=== PATIENT | male | born 1960 | race Caucasian/White ===

== ENCOUNTER 2025-03-02 11:53 | Emergency (ER) | payer MEDICARE, MEDICAID ==
[~2025-03-02] VITALS: Ht 170.2 cm; Wt 105.4 kg
[2025-03-02 12:00] VITALS: TEMP 98
--- NOTE | 2025-03-02 12:07 | ELECTROCARDIOGRAPH REPORT ---
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
[2025-03-02] MEDS ORDERED: TAMS-55 PO ×2 (12:34→14:47)
[2025-03-02] MEDS ORDERED: ASPI81TA52 PO (12:37)
[2025-03-02] MEDS ORDERED: SPIR25TA5 PO ×2 (12:37→14:47)
[2025-03-02] MEDS ORDERED: FURO-150 PO ×2 (12:37→14:47)
[2025-03-02 12:41] LABS: MEAN PLATELET VOLUME 7.4 FL (7.4-10.4); RED CELL DISTRIBUTION WIDTH 13.6 % (11.5-14.5)
--- NOTE | 2025-03-02 12:44 | RADIOLOGY REPORT ---
CHEST RADIOGRAPH Indication: CP Technique: Single frontal view of the chest was obtained COMPARISON: None FINDINGS: Lines and Tubes: None Lungs: Clear Pleura: No effusion. No pneumothorax. Cardiomediastinal contours: Unremarkable Bones: Unremarkable IMPRESSION: 1. No acute disease.
[2025-03-02 12:59] LABS: CREATININE 0.77 MG/DL (0.60-1.10); PRO BRAIN NATRIURETIC PEPTIDE 126 PG/ML (0-125); TOTAL CARBON DIOXIDE 21.9 MMOL/L (24-32); eCRCL 88 ML/MIN; eGFR > 90 ML/MIN
[2025-03-02] MEDS: potassium Cl 20 mEq SR tablet PO ONE (13:43)
--- NOTE | 2025-03-02 13:45 | Physician Documentation ---
History of Present Illness ~ Chief Complaint: Leg Pain Stated Complaint: LEG PAIN/SWELLING Time Seen by MD: 13:31 Source: patient Mode of Arrival: POV Exam Limitations: no limitations HPI Chief Complaint: Lower extremity swelling Caveat: None Independent Historians: None History of Present Illness: Patient is a 64-year-old man comes in complaining of lower extremity swelling that has gotten much more severe over the last week. The patient ran out of his Lasix and spironolactone and medications in October. Patient has not been able to find a primary care physician. Patient denies any chest pain. Patient denies any shortness a breath. Review of systems: All systems were reviewed and are negative except for what is indicated in the history of present illness. Past Medical History: Lower extremity edema, HTN Past Surgical History: Noncontributory Social History: No tobacco use, no alcohol use, no drug use Medications: Reviewed as documented Nursing Notes Allergies: Reviewed as documented in Nursing Notes Tetanus witin 5 years: No Medication Reconciliation Allergies: Coded Allergies: No Known Allergies (Unverified , 03/02/25) Scheduled Aspirin (Aspirin EC), 2 TAB PO BID, (Reported) Furosemide* (Lasix*), 2 TAB PO BID, (Reported) Spironolactone (Spironolactone), 25 MG PO DAILY, (Reported) Tamsulosin Hcl* (Flomax*), 2 CAP PO BID, (Reported) Review of Systems All Other Systems at this time: Reviewed and Negative ROS Patient denies any other acute symptoms other than above. All other systems are negative Physical Exam Vital Signs: RN Vital Signs have been reviewed: Yes, Temperature: 98.0, Heart Rate: 91, Respiratory Rate: 12, BP: 140/88, Pulse Oximetry: 93, Weight: 105.400 Oxygen Flow Rate: 2.0 Pulse Oximetry Reflects: adequate oxygenation Physical Exam General Appearance: Chronically ill-appearing, mild distress HEENT: Normal OP, moist oral mucosa, PERRL, EOMI Neck: supple, normal ROM, trachea midline Pulmonary: No respiratory distress, CTA, BS equal Cardiac: RRR, no murmur, rub or gallop, GI: nondistended, soft, nontender, normal bowel sounds, no guarding, no rebound Extremities: normal ROM, both lower legs are tender to palpation secondary to 2+ nonpitting edema, edema is tense Skin: intact, dry, warm, no rashes Neuro: AAOx3, speech is clear, no focal motor weakness Psych: normal affect, good eye contact, no apparent hallucination, normal speech Progress Results/Orders Results/Orders Orders - ANNE MARIE ZAMORANO MD Chest,Single View (03/02/25 12:22) Monitor (03/02/25 12:05) Saline Lock (03/02/25 12:05) Oxygen (03/02/25 12:05) Hs Troponin I W Calculations (03/02/25 15:05) Completed Orders - ANNE MARIE ZAMORANO MD Chest,Single View (03/02/25 12:22) Cbc/Diff (03/02/25 12:05) BMP (03/02/25 12:05) PBNP (03/02/25 12:05) Electrocardiogram (03/02/25 12:05) Hs Troponin I W Calculations (03/02/25 12:05) Hs Troponin I W Calculations (03/02/25 14:05) Potassium Cl Sr Tablet (K-Dur Tablet) (03/02/25 13:35) Furosemide Inj (Lasix Inj) (03/02/25 13:50) Medications Received in ER Medications (Trade) Dose Ordered Sig/Ivonne Route PRN Reason Start Time Stop Time Status Last Admin Dose Admin (K-DUR tablet) 40 meq ONCE ONCE PO 03/02/25 13:35 03/02/25 13:36 DC 03/02/25 13:43 40 MEQ (Lasix inj) 80 mg ONCE ONCE IV 03/02/25 13:50 03/02/25 13:51 DC 03/02/25 14:06 80 MG Vital Signs 03/02/25 03/02/25 03/02/25 03/02/25 12:00 12:22 12:23 12:26 Temp 98.0 Pulse 92 91 Resp 16 26 B/P (MAP) 170/83 140/88 (105) Pulse Ox 90 94 94 93 O2 Delivery Room Air* Nasal Cannula* Nasal Cannula* O2 Flow Rate 0 2 2 2.0 FiO2 N/A 28 03/02/25 12:26 Resp 12 B/P (MAP) Laboratory Tests Test 03/02/25 12:17 03/02/25 13:50 White Blood Count 7.5 Red Blood Count 5.13 Hemoglobin 16.8 Hematocrit 48.7 Mean Corpuscular Volume 94.8 Mean Corpuscular Hemoglobin 32.8 H Mean Corpuscular Hemoglobin Concent 34.6 Red Cell Distribution Width 13.6 Platelet Count 272 Mean Platelet Volume 7.4 Neutrophils (%) (Auto) 62.3 Lymphocytes (%) (Auto) 21.5 Monocytes (%) (Auto) 9.2 Eosinophils (%) (Auto) 5.9 Basophils (%) (Auto) 1.1 H Neutrophils # (Auto) 4.7 Lymphocytes # (Auto) 1.6 Monocytes # (Auto) 0.7 Eosinophils # (Auto) 0.4 Basophils # (Auto) 0.1 CBC Comment Sodium Level 141 Potassium Level 3.0 *L Chloride Level 105 Carbon Dioxide Level 21.9 L Anion Gap 14 Blood Urea Nitrogen 11 Creatinine 0.77 Estimated GFR/1.73 m2 > 90 BUN/Creatinine Ratio 14.3 Glucose Level 142 H Calcium Level 8.6 Troponin I High Sensitivity 8 8 Pro-B-Type Natriuretic Peptide 126 H Albumin 3.6 Chemistry Comments Troponin I High Sens Percent Delta 0 Troponin I Hi Sens Absolute Change 0 Medical Decision Making Findings Differential diagnosis includes but is not limited to: Venous stasis, lymphedema, lower extremity edema, CHF, acute kidney injury, lack of medications EKG independent interpretation: Performed at 12:05 p.m.. Sinus tachycardia, heart rate 102, normal axis, prolonged QT, normal ST segments Chest x-ray, single view, indication: Peripheral edema Independent interpretation: Lungs are clear, normal mediastinum, normal cardiac silhouette Laboratory data independent interpretation: CBC: Unremarkable CMP: Moderate hypokalemia with a potassium of 3 Pro BNP: 126 Troponin: Eight Emergency department course/medical decision-making: Presents with lower extremity edema. Patient has been out of his medications for months. There does not appear to be any admitting criteria. Patient did have a pulse ox of 93% when he arrived. At rest here he is Patient will be given Lasix 80 mg IV. Patient is thought to be stable for discharge. Chest x-ray is clear for congestive heart failure and pro BNP is 126. No evidence of acute coronary syndrome. Troponins are negative. PATIENT IS HEMODYNAMICALLY STABLE. PATIENT ISN'T REQUIRING OXYGEN. PATIENT IS 95% ON ROOM AIR. PATIENT DOES NOT WISH TO BE ADMITTED UNLESS ABSOLUTELY NECESSARY. DESPITE THAT THERE WAS NO EVIDENCE OF ANY ADMISSION CRITERIA. THERE WAS NO EVIDENCE OF A MEDICAL OR SURGICAL EMERGENCY. Departure Time of Disposition: 14:43 Disposition: 01 HOME / SELF CARE / HOMELESS Impression: Primary Impression: Peripheral edema Condition: Stable Discharge Instructions: Peripheral Edema Additional Instructions: IF YOU ARE UNABLE TO FOLLOW UP WITH THE PRIMARY CARE DOCTOR WITHIN A MONTH I WOULD RECOMMEND FOLLOWING UP AT THE [facility] TO GET REFILLS OF YOUR MEDICATIONS. Prescriptions Aspirin (Baby Aspirin) 81 Mg Tab.chew 2 TAB.CHEW PO DAILY, #60 TAB.CHEW Prov: ANNE MARIE ZAMORANO MD 03/02/25 Tamsulosin Hcl* (Flomax*) 0.4 Mg Cap.sr.24h 1 CAP PO DAILY for 30 Days, #30 CAP Prov: ANNE MARIE ZAMORANO MD 03/02/25 Spironolactone (Spironolactone) 25 Mg Tablet 1 TAB PO DAILY for 30 Days, #30 TAB 0 Refills Prov: ANNE MARIE ZAMORANO MD 03/02/25 Furosemide* (Lasix*) 20 Mg Tablet 2 TAB PO BID, #120 TAB Prov: ANNE MARIE ZAMORANO MD 03/02/25 Education Educated: Patient Educated regarding: diagnosis, treatment Signature Scribe Signature: No scribe Attestation: No scribe ANNE MARIE ZAMORANO MD Mar 02, 2025 13:45
[2025-03-02] MEDS: furosemide 10 MG/1 ML 10ml inj IV ONE (14:06)
[2025-03-02] MEDS ORDERED: ASPI-529 PO (14:47)
[2025-03-02 15:07] VITALS: BP 140/88; PULSE 93; RESP 20; O2SAT 95
== END 2025-03-02 15:08 | disposition home or self-care (01) ==
LOC: ER 11:55
DX: R60.0 Localized edema (principal); I10 Essential (primary) hypertension; R06.02 Shortness of breath
CPT/HCPCS: 36415; 71045; 80048; 83880; 84484; 85025; 93005; 96374; 99285; J1938; J7030

== ENCOUNTER 2025-03-04 00:04 | Inpatient (IN) | payer MEDICARE, MEDICAID ==
[2025-03-04] VITALS (10 sets, daily range): BP systolic 130–156; BP diastolic 73–92; PULSE 74–85; RESP 17–20; TEMP 96.7–98.6; O2SAT 93–96
[~2025-03-04] VITALS: Ht 175.3 cm; Wt 100.0 kg
[~2025-03-04 00:04] MED LIST: ASPI-529 PO; ASPI81TA52 PO; FURO-150 PO; SPIR25TA5 PO; TAMS-55 PO
--- NOTE | 2025-03-04 00:47 | RADIOLOGY REPORT ---
CHEST RADIOGRAPH Indication: CP Technique: 1 view Comparison: DI CHEST,SINGLE VIEW on DOS: 03/02/25 FINDINGS: Lines and Tubes: None Lungs/Pleura: No focal consolidation, pleural effusion or pneumothorax. Mild scarring/atelectasis in the lung bases Cardiomediastinum: Heart size within normal limits. Other: No acute osseous abnormality. IMPRESSION: 1. No acute cardiopulmonary abnormality or significant change from prior exam.
[2025-03-04 00:57] LABS: MEAN PLATELET VOLUME 7.3 FL (7.4-10.4); RED CELL DISTRIBUTION WIDTH 13.7 % (11.5-14.5)
[2025-03-04 01:21] LABS: CREATININE 0.89 MG/DL (0.60-1.10); PRO BRAIN NATRIURETIC PEPTIDE 34 PG/ML (0-125); TOTAL CARBON DIOXIDE 27.7 MMOL/L (24-32); eCRCL 82 ML/MIN; eGFR 86 ML/MIN
--- NOTE | 2025-03-04 01:22 | Physician Documentation ---
History of Present Illness ~ Chief Complaint: Chest Pain Stated Complaint: CHEST PAINS M ALS Time Seen by MD: 01:10 Primary Medical Doctor: none Mode of Arrival: EMS HPI Patient presents to the emergency room for evaluation of chest pain that occurred while he was watching TV. No prior instances. Pain described as severe with no exacerbating or relieving factors. Patient does not have a primary care but does endorse history of hyperlipidemia and hypertension. Medication Reconciliation Allergies: Coded Allergies: No Known Allergies (Unverified , 03/02/25) Scheduled Aspirin (Aspirin EC), 2 TAB PO BID, (Reported) Aspirin (Baby Aspirin), 2 TAB.CHEW PO DAILY Furosemide* (Lasix*), 2 TAB PO BID, (Reported) Furosemide* (Lasix*), 2 TAB PO BID Spironolactone (Spironolactone), 25 MG PO DAILY, (Reported) Spironolactone (Spironolactone), 1 TAB PO DAILY Tamsulosin Hcl* (Flomax*), 2 CAP PO BID, (Reported) Tamsulosin Hcl* (Flomax*), 1 CAP PO DAILY Review of Systems ROS All review of systems negative except as per HPI Physical Exam Vital Signs: Temperature: 98.1, Source: Oral, Heart Rate: 103, Respiratory Rate: 25, BP: 116/76, Pulse Oximetry: 93, Weight: 100.000 Oxygen Flow Rate: 4.0 Physical Exam General: Patient is awake, alert, oriented x4 in no acute distress and well appearing.~ Head: Normocephalic and atraumatic. Eyes: Conjunctival normal. EOMI. PERRL. ENT: Mucous membranes moist. Neck: Supple, trachea is midline. Chest: Clear to auscultation bilaterally without rales, rhonchi, or wheezes. The re is no accessory muscle use or retractions. Cardiac: RRR without murmurs, gallops, or rubs. Abd: Soft, nondistended, nontender, with normoactive bowel sounds. No guarding, rebound, or rigidity. Progress Results/Orders Results/Orders Orders - PEPE MOE MD Chest,Single View (03/04/25 00:30) Monitor (03/04/25 00:16) Saline Lock (03/04/25 00:16) Oxygen (03/04/25 00:16) Electrocardiogram (03/04/25 00:16) Hs Troponin I W Calculations (03/04/25 02:16) Hs Troponin I W Calculations (03/04/25 03:16) Page Hospitalist (03/04/25 02:15) Fill Out Med Reconciliation (03/04/25 02:15) Completed Orders - PEPE MOE MD Chest,Single View (03/04/25 00:30) Cbc/Diff (03/04/25 00:16) BMP (03/04/25 00:16) PBNP (03/04/25 00:16) Hs Troponin I W Calculations (03/04/25 00:16) Vital Signs 03/04/25 03/04/25 03/04/25 00:14 00:50 00:55 Temp 98.1 98.1 Pulse 106 103 Resp 21 25 B/P (MAP) 132/79 116/76 (89) Pulse Ox 90 93 O2 Flow Rate 4.0 4.0 Laboratory Tests Test 03/04/25 00:42 03/04/25 02:13 White Blood Count 11.1 H Red Blood Count 4.79 Hemoglobin 15.6 Hematocrit 45.2 Mean Corpuscular Volume 94.3 Mean Corpuscular Hemoglobin 32.5 H Mean Corpuscular Hemoglobin Concent 34.4 Red Cell Distribution Width 13.7 Platelet Count 255 Mean Platelet Volume 7.3 L Neutrophils (%) (Auto) 73.9 Lymphocytes (%) (Auto) 14.7 L Monocytes (%) (Auto) 9.9 Eosinophils (%) (Auto) 0.7 Basophils (%) (Auto) 0.8 Neutrophils # (Auto) 8.2 H Lymphocytes # (Auto) 1.6 Monocytes # (Auto) 1.1 H Eosinophils # (Auto) 0.1 Basophils # (Auto) 0.1 CBC Comment Sodium Level 137 Potassium Level 3.7 Chloride Level 99 Carbon Dioxide Level 27.7 Anion Gap 10 Blood Urea Nitrogen 21 H Creatinine 0.89 Estimated GFR/1.73 m2 86 BUN/Creatinine Ratio 23.6 H Glucose Level 141 H Calcium Level 9.4 Troponin I High Sensitivity 10 Troponin I High Sens Percent Delta 25 Troponin I Hi Sens Absolute Change 2 Pro-B-Type Natriuretic Peptide 34 Albumin 3.4 Chemistry Comments EKG/XRAY/CT/US/VASC/MRI EKG : Additional Comment EKG interpreted by myself shows time of 0 0 15, rate 106, sinus tachycardia, normal axis, noted PVC, no ST changes Chest X-Ray : Additional Comments Exam: CHEST,SINGLE VIEW CHEST RADIOGRAPH Indication: CP Technique: 1 view Comparison: DI CHEST,SINGLE VIEW on DOS: 03/02/25 FINDINGS: Lines and Tubes: None Lungs/Pleura: No focal consolidation, pleural effusion or pneumothorax. Mild scarring/atelectasis in the lung bases Cardiomediastinum: Heart size within normal limits. Other: No acute osseous abnormality. IMPRESSION: 1. No acute cardiopulmonary abnormality or significant change from prior exam. Medical Decision Making Findings Patient presents to the emergency room for evaluation of chest pain as per HPI. Differentials include but are not limited to ACS, pulmonary embolism, aortic pathology, musculoskeletal pain therefore emergent labs and imaging indicated. Patient has not elevated heart score of four and we will admit for further investigation. No current symptoms and he had not feel he requires investigation into aortic pathology or pulmonary embolism. Departure Admitted to Inpatient Unit: yes, to hospitalist Impression: Primary Impression: Chest pain Condition: Guarded Referrals: NO PRIMARY CARE PROVIDER (PCP) Signature Scribe Signature: No scribe Attestation: The note accurately reflects work and decisions made by me.Pepe Moe MD 03/04/25 01:22 PEPE MOE MD Mar 04, 2025 01:22
[2025-03-04] MEDS ORDERED: magnesium sulf-water 4G/100mL 100 ML IV PRN (02:35)
[2025-03-04] MEDS ORDERED: magnesium Cl slow-release 64mg tablet PO PRN (02:35)
[2025-03-04] MEDS ORDERED: HYDROmorphone inj. 0.5 MG/0.5 ML DISP.SYRIN IV PRN (02:35)
[2025-03-04] MEDS ORDERED: magnesium hydroxide 30ml (MOM) UD suspension PO PRN (02:35)
[2025-03-04] MEDS ORDERED: potassium Cl 40MEQ/1/2NS 520ml 520 ML IV PRN (02:35)
[2025-03-04] MEDS ORDERED: magnesium sulf-water 2g/50mL 50 ML IV PRN (02:35)
[2025-03-04] MEDS ORDERED: HYDROmorphone/PF 0.2 MG/ML SYRINGE IV PRN (02:35)
[2025-03-04] MEDS ORDERED: potassium Cl 20 mEq SR tablet PO PRN ×2 (02:35)
[2025-03-04] MEDS ORDERED: ondansetron/PF 4mg/2ml inj IV PRN (02:35)
[2025-03-04] MEDS ORDERED: metoprolol tartrate 1mg/ml inj IV PRN (04:25)
[2025-03-04] MEDS ORDERED: regadenoson 0.4mg/5ml syringe IV PRN (04:25)
[2025-03-04] MEDS ORDERED: aminophylline 250mg/10ml inj. IV PRN (04:25)
--- NOTE | 2025-03-04 05:32 | ELECTROCARDIOGRAPH REPORT ---
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
--- NOTE | 2025-03-04 05:40 | HISTORY AND PHYSICAL-Residence ---
History & Physical Providers to CC Resident Creating Document: PANFILO ROMERO, RES ~ History of Present Illness Primary Medical Doctor: none Reason for Admit\Complaint: Chest pain History of Present Illness 64 years old with a history of hyperlipidemia and hypertension comes to ED with complains of chest pain which occurs at rest when he was watching TV which is not subsiding even after taking 3 Nitroglycerins, It is right sided crushing chest pain which is 7/10 in intensity which is radiating to back which is associated with sweating no nausea , vomiting. He is currently on 4l Oxygen on Nasal canula .patient is in acute distress during examination Allergies: Coded Allergies: No Known Allergies (Unverified , 03/02/25) Home Medications Home Medications Active Reported Aspirin EC (Aspirin) 81 Mg Tablet.dr 2 Tab PO BID 30 Days Spironolactone 25 Mg Tablet 25 Mg PO DAILY Lasix* (Furosemide) 20 Mg Tablet 2 Tab PO BID 30 Days Flomax* (Tamsulosin HCl) 0.4 Mg Cap.sr.24h 2 Cap PO BID 30 Days Past Medical History Past Medical History hyperlipidemia hypertension. 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 Past Social History Smoking: Quit less than 1 year (used to smoke about a pack of cigarettes daily for 40 years but 4 months ago he stopped ) Alcohol Use: Occasionally Drug Use: None Lives with: Alone Lives In: Home ROS Constitutional: Reports: no symptoms reported Eyes: Reports: no symptoms reported ENT: Reports: no symptoms reported Respiratory: Reports: no symptoms reported Cardiovascular: Reports: chest pain Gastrointestinal: Reports: no symptoms reported Genitourinary: Reports: no symptoms reported Male Genitalia: Reports: no symptoms reported Neurological: Reports: no symptoms reported Musculoskeletal: Reports: no symptoms reported Integumentary: Reports: no symptoms reported Hematologic/Lymphatic: Reports: no symptoms reported Endocrine: Reports: no symptoms reported Exam Vitals: Vital Signs Date Time Temp Pulse Resp B/P (MAP) Pulse Ox O2 Delivery O2 Flow Rate FiO2 03/04/25 04:53 74 03/04/25 04:30 18 Nasal Cannula 4.0 03/04/25 04:15 96.7 155/88 (110) 95 General: General: Oriented, awake,in acute distress. HEENT: Conjunctiva pink, Sclera clear, Mucus Membranes moist. Neck: Supple without masses and tenderness. Resp: Lungs clear to auscultation bilaterally, no abnormal breath sound heard Heart: tachycardic, normal S1 and S2 without murmur, rub or gallop. Abdomen: distended with no organomegaly Extremities: peripheral pitting edema.No cyanosis,clubbing Skin: Warm and Dry. Diagnostic Data Last Recorded Lab Results: 03/04/25 0042 03/04/25 0300 Diagnostic Data: Laboratory Tests Test 03/04/25 00:43 D-Dimer 2.33 MG/L FEU (0-0.50) H D-Dimer Comment Advance Care Planning Advanced Care plannin - 30 Minutes Additional Plan Chest pain likely due to PE vs UA RADHA score 4 / HEART SCORE : 5 Bp:155/88, HR:85 EKG: Sinus tachy, Troponins negative D-Dimers: 2.33 No acute cardiopulmonary abnormality P: continue Nitroglycerin PRN started Atrovostatin 40mg PO daily Metaprolol 25 mg PO BID pending Echo pending CTA Chest if negative consider thanh scan continue heparin drip pharmacy to dose Hypertension: Started home med Tamusulosin 2 cap PO BID Sprionolactone 25mg PO daily Furosemide 20mg Tab Hyperlipidemia : started atorvastatin Disposition: patient will be monitored in ortho panfilo romero [id number] Fusaro addendum #1 Neuro: - Monitor for delirium #2 CV: The pt has a history of HTN, hyperlipidemia, chest pain, and possible acute coronary syndrome - Continue aspirin, statin, metoprolol, and nitroglycerin for ACS management - Administer heparin as per ACS protocol - If hemodynamically stable, continue home BP meds - Monitor vitals closely, especially heart rate and blood pressure - Monitor for alleviation of chest pain #3 Pulm: - Promote IS use - Keep O2 saturation >92% #4 GI: - Advance diet when ok with primary #5 Renal: bph, confrim dose of tamsulosin with pharmacy as it seems atypical - Monitor for JOAQUINA - Replete electrolytes as needed - Continue lasix and spironolactone as indicated for fluid management #6 ID: - Monitor for infection #7 Endo: The pt has a history of dyslipidemia. - Maintain FS 150-180 - Continue statin and other lipid-lowering agents #8 Heme/Onc: - Monitor for bleeding and blood clots due to heparin - Keep Hgb >7 and plt >10 #9 PPx: - Chemical DVT PPx as per protocol I saw this patient and completed a full visual exam via audio-visual HIPAA compliant technology. Date of Service: Mar 04, 2025 Billing Provider: NICOLAS BARTH MD, SATISH, RES Mar 04, 2025 05:40 JUSTO SHAY, RES Mar 04, 2025 06:59 NICOLAS BARTH MD Mar 04, 2025 09:47
[2025-03-04 07:05] LABS: CREATININE 1.05 MG/DL (0.60-1.10); eCRCL 69 ML/MIN; eGFR 71 ML/MIN
[2025-03-04] MEDS ORDERED: HEPARIN DRIP DVT/PE -**PHARMACIST TO DOSE IV SCH (07:10)
[2025-03-04] MEDS ORDERED: heparin 10,000 units/1 ML INJ IV PRN ×2 (07:30→07:45)
[2025-03-04] MEDS ORDERED: heparin 25,000 UNIT/250ml bag 250 ML IV PRN ×2 (07:30→07:45)
[2025-03-04] MEDS ORDERED: heparin 10,000 units/1 ML INJ IV ONE (07:30)
[2025-03-04] MEDS: heparin 10,000 units/1 ML INJ IV ONE (07:45)
[2025-03-04] MEDS: MESSAGE TO NURSING IV ONE (07:55)
[2025-03-04] MEDS: K and/or MAG REPLACEMENT MC SCH (08:00)
--- NOTE | 2025-03-04 08:14 | RADIOLOGY REPORT ---
CTA Chest with intravenous contrast INDICATION: sob COMPARISON: Chest radiograph performed on 03/04/2025. TECHNIQUE: Multidetector spiral CTA of the chest was performed of the chest with 100 cc of omnipaque 350 intravenous contrast. PULMONARY ANGIOGRAPHY PROTOCOL was utilized using a bolus-tracking techniqu e centered on the main pulmonary artery. Coronal and sagittal multiplanar and MIP reformats were perf ormed. Radiation Dose : 1. Chest: CTDI volume is 23.6 mGy. Dose-length product is 918.2 mGy*cm The dose indicators for CT are the volume Computed Tomography (CT) Dose Index (CTDIvol) and the Dose Length Product (DLP), and are measured in units of mGy and mGy-cm, respectively. These indicators are not patient dose, but values generated from the CT scanner acquisition factors. The report includes radiation exposure data for exposures received during this examination. FINDINGS: Pulmonary artery: No central, lobar or proximal segmental pulmonary embolus. Lower neck: Unremarkable thyroid. Lungs: There is paraseptal emphysema in the lung apices. No suspicious pulmonary nodule. Mild left up per lobe atelectasis. Central airways: Patent. Pleura: No pneumothorax. No pleural effusions. Heart/Vascular Structures: The heart is normal in size. No pericardial effusion. Thoracic aorta is no rmal in caliber. No aneurysm or dissection. Lymph Nodes: No mediastinal or hilar lymphadenopathy. Esophagus:Grossly unremarkable. Musculoskeletal: Old left clavicular fracture. No acute osseous abnormality. Body wall: Unremarkable. Upper abdomen: Hepatic steatosis. IMPRESSION: 1. No evidence of pulmonary embolism. 2. Paraseptal emphysema. No evidence of pneumonia. 3. Hepatic steatosis.
[2025-03-04] MEDS ORDERED: heparin, porcine 5000 units/ml vial SQ SCH (08:30)
[2025-03-04] MEDS: docusate sod 100mg capsule PO SCH (09:07)
--- NOTE | 2025-03-04 15:10 | PROGRESS NOTE- Residence ---
Progress Note - Resident Providers to CC Resident Creating Document: JOSÉ HUTCHINSON RES ~ Antibiotic Timeout Antibiotic Ordered?: No Subjective Patient was seen and examined bedside. He appears to be in mild distress. He is on 4 L oxygen and feels short of breath on exertion. He states that his chest pain has shifted to the right side, 7/10 in intensity and he reports that he has been having few muscle spasms over his chest and abdomen. Objective Vital Signs Date Time Temp Pulse Resp B/P (MAP) Pulse Ox O2 Delivery O2 Flow Rate FiO2 03/04/25 10:08 18 03/04/25 10:00 98.3 75 143/92 (109) 96 Nasal Cannula 3.0 Result Diagram: 03/04/25 0042 03/04/25 0300 General: Oriented, awake,in mild distress. HEENT: Conjunctiva pink, Sclera clear, Mucus Membranes moist. Neck: Supple without masses and tenderness. Resp: chest tenderness present, Lungs clear to auscultation bilaterally, no abnormal breath sound heard Heart: Sinus rhythm, normal S1 and S2 without murmur, rub or gallop. Abdomen: distended with no organomegaly Extremities: peripheral pitting edema.No cyanosis,clubbing Skin: Warm and Dry. Coagulation Studies Laboratory Tests Test 03/04/25 00:43 03/04/25 08:15 D-Dimer 2.33 MG/L FEU (0-0.50) H D-Dimer Comment APTT (Heparin Protocol) 25 SECONDS (45-60) L Coagulation Comments Assessment Assessment Plan Plan Chest pain Possibly secondary to CHF exacerbation vs musculoskeletal Differential diagnosis includes: Unstable/stable angina- however less likely as pain is produced on deep palpation and chest tenderness present Ischemic etiology, pulmonary embolism - ruled out Patient complains of chest pain being shifted to the right side and reports of muscle spasms, there is chest tenderness so the pain is most likely musculoskeletal Plan: Troponin-not elevated EKG shows no ST elevation CTA- 1. No evidence of pulmonary embolism. 2. Paraseptal emphysema. No evidence of pneumonia. 3. Hepatic steatosis. Continue pain medication Start patient on IV Lasix 40 mg b.i.d. Monitor urine inputs and outputs Echo report -pending Hypertension: Started on IV Lasix 40 mg bid On tamsulosin 0.8 mg PO BID Sprionolactone 25 mg PO daily Metoprolol 25 mg p.o. b.i.d. Hyperlipidemia: Lipid panel ordered on atorvastatin 40 mg p.o. Disposition: Continue pain medication Started on IV Lasix 40 mg b.i.d. Strictly monitor inputs and outputs We will await echo report José Hutchinson, Internal Medicine Resident, PGY-1 Date of Service: Mar 04, 2025 Billing Provider: JAYDA SEGURA MD,JOSÉ, RES Mar 04, 2025 15:10
[2025-03-04] MEDS: PERFLUTREN PROTEIN-A MICROSPHR (Optison) 0.22 MG/ML 3ML VIAL IV ONE (18:26)
--- NOTE | 2025-03-04 18:36 | CARDIOLOGY REPORT ---
APPROVED REPORT EXAM: Comprehensive 2D, Doppler, and color-flow Echocardiogram. Patient Location: 40[address] Blood Pressure: 143/92 mmHg Heart Rate: 71 bpm Rhythm: SINUS Indications CHEST PAIN HYPERLIPIDEMIA HYPERTENSION CHEST PAIN Kaitara Taraka: none Previous echo: none 2D Dimensions RVDd 4.1 cm LA Diam4.6 cm LVOT Diameter 2.29 (1.8-2.4cm) Ao Asc Diam.3.11 cm IVC 16.41 mmCO 3.6 L/min M-Mode Dimensions Left Atrium(MM) 3.42 (2.5-4.0cm) IVSd 1.21 (0.7-1.1cm) LVDd 4.43 (4.0-5.6cm) Aortic Root 3.15 (2.2-3.7cm) PWd 1.21 (0.7-1.1cm) Aortic Cusp Exc 2.10 (1.5-2.0cm) IVSs 1.44 cm MV EPSS 0.9 (<0.5cm) LVDs 3.11 (2.0-3.8cm) FS (%) 30 % PWs 1.98 cm ESV(Teich) 38.3 ml LVEF(%) 57 (>50%) Biplane 2D LA Volumes LA ESV Index 13.46 mL/m2 Aortic Valve AoV Peak Pancho. 124.6 cm/s AoV VTI 23.9 cm AO Peak GR. 6.2 mmHg AO Mean GR. 4 mmHg LVOT VTI 15.79 cm LVOT Peak Pancho. 87.6 cm/s PAM(VTI)/BSA 2.72 cm2/m2 PAM (VTI) 2.72 cm2 Mitral Valve MV E Velocity 79.9 cm/s MV Peak Gr. 3 mmHg MV DECEL TIME 244 ms MV A Velocity 97.7 cm/s MV PHT 60 ms E/A Ratio 0.8 MVA (PHT) 3.67 cm2 MV VMax90.2 cm/s TDI Medial E' P. V 10.13 cm/s E/Medial E' 7.9 Pulmonary Vein S1 Velocity 41.9 cm/s D2 Velocity 53.0 cm/s PVa Jydfmqfb55.5 cm/s PVa Jxoewsam52 msec LEFT VENTRICLE Normal LV size and function. Mild concentric hypertrophy. LVEF is 55-60%. RIGHT VENTRICLE RV is moderately dilated in size with normal function. ATRIA LA size is normal. AORTIC VALVE Trileaflet AV appears mildly sclerotic without stenosis or insufficiency. MITRAL VALVE Mild MV annular calcification without stenosis. Trace regurgitation. TRICUSPID VALVE TV appears structurally normal with trace regurgitation. PULMONIC VALVE Normal PV without stenosis, physiologic insufficiency. GREAT VESSELS Aortic root is normal in size. Ascending aorta is normal in size. The IVC is normal in size and colla pses greater than 50% with inspiration. PERICARDIUM Normal pericardium. No effusion. Other Information Study Quality: Adequate Conclusion Normal LV size and function. Mild concentric hypertrophy. LVEF is 55-60%. RV is moderately dilated in size with normal function. LA size is normal. Trileaflet AV appears mildly sclerotic without stenosis or insufficiency. Mild MV annular calcification without stenosis. Trace regurgitation. TV appears structurally normal with trace regurgitation. Normal pericardium. No effusion.
[2025-03-04 19:45] LABS: CHOL/HDL RATIO 4.6 (0.00-4.99); LDL CHOLESTEROL 187 MG/DL (50-100)
--- NOTE | 2025-03-04 22:59 | ELECTROCARDIOGRAPH REPORT ---
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 ADAM Rizo Measurements Intervals [place] Rate: 71 P: 70 NV: 160 QRS: 38 QRSD: 100 T: 37 QT: 460 QTc: 500 Interpretive Statements Sinus rhythm Ventricular premature complex Borderline prolonged QT interval Baseline wander in lead(s) III Electronically Signed On 03-05-2025 19:17:[address] ADAM Rizo Please click the below link to view image of tracing.
[2025-03-04] MEDS ORDERED: mag hydrox/Alum hydrox/simeth 30ml oral suspension PO PRN (23:15)
[2025-03-05] VITALS (9 sets, daily range): BP systolic 90–127; BP diastolic 45–72; PULSE 71–81; RESP 16–19; TEMP 97.7–97.9; O2SAT 90–97
[2025-03-05] MEDS: mag hydrox/Alum hydrox/simeth 30ml oral suspension PO PRN (05:48)
[2025-03-05 07:00] LABS: CREATININE 0.88 MG/DL (0.60-1.10); TOTAL CARBON DIOXIDE 29.4 MMOL/L (24-32); eCRCL 83 ML/MIN; eGFR 87 ML/MIN
[2025-03-05 07:06] LABS: MEAN PLATELET VOLUME 8.0 FL (7.4-10.4); RED CELL DISTRIBUTION WIDTH 13.6 % (11.5-14.5)
[2025-03-05] MEDS: pantoprazole 40mg Tablet.DR PO SCH (09:06)
[2025-03-05] MEDS ORDERED: aminophylline 250mg/10ml inj. IV PRN (09:55)
[2025-03-05] MEDS ORDERED: metoprolol tartrate 1mg/ml inj IV PRN (09:55)
[2025-03-05] MEDS: regadenoson 0.4mg/5ml syringe IV PRN (13:15)
--- NOTE | 2025-03-05 14:35 | RADIOLOGY REPORT ---
EXAM: NM NM RIDGE SCAN History: chest pain r/o ACS Comparison Study: None TECHNIQUE: Resting myocardial perfusion imaging was performed approximately 30 minutes following the injection of 8.35 mCi of Tc-99m sestamibi. Peak pharmacologic stress, the patient was injected with 3 2.04 mCi of Tc-99m sestamibi. Gated post stress images were acquired in the supine and prone position s approximately 30 minutes after stress and left ventricular ejection fraction (LVEF) was calculated. Findings: The overall quality of the study is adequate. The left ventricular cavity is noted to be normal. There is no evidence of abnormal lung activity. Additionally, the right ventricle appears normal. Myocardial perfusion images demonstrate homogeneous tracer distribution throughout the myocardium wit h no scintigraphic evidence of myocardial ischemia or necrosis/scar. Gated imaging reveals normal thickening and wall motion with a calculated LVEF of 51 % with end-diast olic volume of 70 mL at stress. Impression: 1. No evidence of ischemia or scar. 2. Overall gated left ventricular systolic function was normal with calculated LVEF of 51 % at stress . 3. No left ventricular dilatation.
[2025-03-05] MEDS ORDERED: ACET-1008 PO ×2 (16:15→16:16)
[2025-03-05] MEDS ORDERED: ATOR20TA66 PO (16:19)
[2025-03-05] MEDS ORDERED: IBUP600T52 PO (16:19)
[2025-03-05] MEDS ORDERED: PANT40TA54 PO (16:19)
[2025-03-05] MEDS ORDERED: THIA100T70 PO (16:33)
[2025-03-05] MEDS ORDERED: FOLI0.4T6 PO (16:33)
--- NOTE | 2025-03-05 19:31 | DISCHARGE SUMMARY-Residence ---
Discharge Summary Providers to CC Resident Creating Document: JOSÉ HUTCHINSON, RES ~ Discharge Summary Admission Diagnosis: Chest pain Hospital Course DATE OF ADMISSION: 03/04/25 DATE OF DISCHARGE: 03/05/25 Discharge Diagnosis\Comment: Chest pain -noncardiac Possible costochondritis Acute on chronic heart failure with preserved ejection fraction- diastolic Hypertension Hyperlipidemia Operations\Procedures: None Consultants: None Complications: None Condition on DC: Stable New Medications: Folic Acid* (Folic Acid*) 0.4 Mg Tablet 1 TAB PO DAILY for 30 Days, #30 TAB Thiamine Mononitrate (Vitamin B-1) 100 Mg Tablet 100 MG PO DAILY for 30 Days, #30 TAB Atorvastatin Calcium (Atorvastatin Calcium) 20 Mg Tablet 40 MG PO DAILY for 30 Days, #60 TAB Pantoprazole Sodium (Pantoprazole Sodium) 40 Mg Tablet.dr 40 MG PO BKF for 30 Days, #30 TAB.SR Changed Medications: Acetaminophen (Tylenol) 325 Mg Tablet 650 MG PO Q8H for pain for 7 Days, #20 TAB (Changed from: Q8H PRN TEMPERATURE; 90; 15) Continued Medications: Aspirin (Aspirin EC) 81 Mg Tablet.dr 2 TAB PO BID for 30 Days, #30 TAB Furosemide* (Lasix*) 20 Mg Tablet 2 TAB PO BID for 30 Days, #30 TAB Spironolactone (Spironolactone) 25 Mg Tablet 25 MG PO DAILY, #30 TAB Tamsulosin Hcl* (Flomax*) 0.4 Mg Cap.sr.24h 2 CAP PO BID for 30 Days, #30 CAP Discharge Summary: HPI as per admitting physician: 64 years old with a history of hyperlipidemia and hypertension comes to ED with complains of chest pain which occurs at rest when he was watching TV which is not subsiding even after taking 3 Nitroglycerins, It is right sided crushing chest pain which is 7/10 in intensity which is radiating to back which is associated with sweating no nausea , vomiting. He is currently on 4l Oxygen on Nasal canula .patient is in acute distress during examination. Hospital course: Patient presented with chest pain and shortness of breath. His chest pain was noncardiac most likely costochondritis as he had chest tenderness on deep palpation. Pain was managed by morphine 2 mg/4 mg q.4h p.r.n. for moderate and severe pain respectively. He also has acute on chronic diastolic heart failure with preserved ejection fraction. His echo showed LVEF of 55 to 60 % with no valvular abnormalities. He had peripheral pedal edema which reduced after administering IV Lasix 40 mg The following day. CTA was ordered and pulmonary embolism was ruled out. Although his symptoms were attributed to noncardiac chest pain, Lexiscan was ordered keeping his cardiovascular risk factors in mind and ischemic etiology was ruled out. His hypertension was managed with IV Lasix 40 mg b.i.d, spironolactone 25 mg p.o. and metoprolol 25 mg p.o. b.i.d.. For BPH, his home medication tamsulosin 0.8 mg p.o. was continued. For hyperlipidemia lipid panel was ordered which showed Cholesterol 280, LDL 187 for which he was continued on atorvastatin 40 mg p.o. Patient did not experience further complications throughout the entire hospital stay. Patient was seen and examined on the day of discharge. All labs, diagnostic workups, discharge plan discussed with patient in details during visit before discharge. All questions and concerns answered to the best of my professional knowledge. Imaging: Echo: 03/04/2025 Normal LV size and function. Mild concentric hypertrophy. LVEF is 55-60%. RV is moderately dilated in size with normal function. LA size is normal. Trileaflet AV appears mildly sclerotic without stenosis or insufficiency. Mild MV annular calcification without stenosis. Trace regurgitation. TV appears structurally normal with trace regurgitation. Normal pericardium. No effusion. Chest Xray: 03/04/2025 No acute cardiopulmonary abnormality or significant change from prior exam. CTA chest 03/04/2025 1. No evidence of pulmonary embolism. 2. Paraseptal emphysema. No evidence of pneumonia. 3. Hepatic steatosis. Lexiscan-03/05/2025 1. No evidence of ischemia or scar. 2. Overall gated left ventricular systolic function was normal with calculated LVEF of 51 % at stress. 3. No left ventricular dilatation. Physical examination today: General: Oriented, awake,in mild distress. HEENT: Conjunctiva pink, Sclera clear, Mucus Membranes moist. Neck: Supple without masses and tenderness. Resp: chest tenderness present, Lungs clear to auscultation bilaterally, no abnormal breath sound heard Heart: Sinus rhythm, normal S1 and S2 without murmur, rub or gallop. Abdomen: distended with no organomegaly Extremities: peripheral pitting edema.No cyanosis,clubbing Skin: Warm and Dry. Laboratory Tests Test 03/04/25 00:42 03/04/25 00:43 03/04/25 02:13 03/04/25 03:00 White Blood Count 11.1 X10'3 Red Blood Count 4.79 X10'6 Hemoglobin 15.6 g/dl Hematocrit 45.2 % Mean Corpuscular Volume 94.3 FL Mean Corpuscular Hemoglobin 32.5 PG Mean Corpuscular Hemoglobin Concent 34.4 g/dL Red Cell Distribution Width 13.7 % Platelet Count 255 X10'3 Mean Platelet Volume 7.3 FL Neutrophils (%) (Auto) 73.9 % Lymphocytes (%) (Auto) 14.7 % Monocytes (%) (Auto) 9.9 % Eosinophils (%) (Auto) 0.7 % Basophils (%) (Auto) 0.8 % Neutrophils # (Auto) 8.2 X10'3 Lymphocytes # (Auto) 1.6 X10'3 Monocytes # (Auto) 1.1 X10'3 Eosinophils # (Auto) 0.1 X10'3 Basophils # (Auto) 0.1 X10'3 CBC Comment Sodium Level 137 MMOL/L Potassium Level 3.7 MMOL/L 3.7 MMOL/L Chloride Level 99 MMOL/L Carbon Dioxide Level 27.7 MMOL/L Anion Gap 10 Blood Urea Nitrogen 21 MG/DL Creatinine 0.89 MG/DL 1.05 MG/DL Estimated GFR/1.73 m2 86 ML/MIN 71 ML/MIN BUN/Creatinine Ratio 23.6 Glucose Level 141 MG/DL Calcium Level 9.4 MG/DL Troponin I High Sensitivity 10 ng/L 12 ng/L 14 ng/L Troponin I High Sens Percent Delta 25 % 20 % 16 % Troponin I Hi Sens Absolute Change 2 ng/L 2 ng/L 2 ng/L Pro-B-Type Natriuretic Peptide 34 PG/ML Albumin 3.4 G/DL Chemistry Comments D-Dimer 2.33 MG/L FEU D-Dimer Comment Magnesium Level 2.1 MG/DL Triglycerides Level 124 MG/DL Cholesterol Level 280 MG/DL LDL Cholesterol 187 MG/DL HDL Cholesterol 61 MG/DL Cholesterol/HDL Ratio 4.6 Test 03/04/25 08:15 03/05/25 05:46 APTT (Heparin Protocol) 25 SECONDS Coagulation Comments White Blood Count 8.9 X10'3 Red Blood Count 4.86 X10'6 Hemoglobin 16.1 g/dl Hematocrit 46.0 % Mean Corpuscular Volume 94.7 FL Mean Corpuscular Hemoglobin 33.1 PG Mean Corpuscular Hemoglobin Concent 35.0 g/dL Red Cell Distribution Width 13.6 % Platelet Count 215 X10'3 Mean Platelet Volume 8.0 FL Neutrophils (%) (Auto) 67.4 % Lymphocytes (%) (Auto) 18.2 % Monocytes (%) (Auto) 9.9 % Eosinophils (%) (Auto) 3.9 % Basophils (%) (Auto) 0.6 % Neutrophils # (Auto) 6.0 X10'3 Lymphocytes # (Auto) 1.6 X10'3 Monocytes # (Auto) 0.9 X10'3 Eosinophils # (Auto) 0.3 X10'3 Basophils # (Auto) 0.1 X10'3 CBC Comment Sodium Level 133 MMOL/L Potassium Level 3.6 MMOL/L Chloride Level 98 MMOL/L Carbon Dioxide Level 29.4 MMOL/L Anion Gap 6 Blood Urea Nitrogen 15 MG/DL Creatinine 0.88 MG/DL Estimated GFR/1.73 m2 87 ML/MIN BUN/Creatinine Ratio 17.0 Glucose Level 106 MG/DL Calcium Level 8.9 MG/DL Magnesium Level 2.2 MG/DL Total Bilirubin 1.3 MG/DL Aspartate Amino Transf (AST/SGOT) 27 U/L Alanine Aminotransferase (ALT/SGPT) 31 U/L Alkaline Phosphatase 106 IU/L Total Protein 7.2 G/DL Albumin 3.3 G/DL Globulin 3.9 G/DL Albumin/Globulin Ratio 0.8 Chemistry Comments Advise on discharge: Follow-up with PCP in 1-2 week Advised to stop drinking alcohol Recommended heart healthy diet Continue pain medications as prescribed If you feel sudden chest pain, sweating or shortness of breath, please go to ER or call 911 Side effects of your medication and discussed with the PCP in outpatient setting *Problems/Diagnosis: (1) Costochondritis, acute (2) Chest pain Status: Acute (3) Heart failure Total Time Spent on D/C: > 30 Minutes Date of Service: Mar 05, 2025 Billing Provider: CAMILA SHARP MD, PREETHI, RES Mar 05, 2025 19:10
== END 2025-03-05 16:58 | disposition home or self-care (01) | DRG 205 ==
LOC: ER 00:05 → ED HOLD 03:10 → UNDOADMIN 03:10 → ED HOLD 04:07 → ORTHO 4S 04:07 → ED HOLD 05:33 → ORTHO 4S 05:33
PROVIDERS: ADMIT Internal Medicine Pulmonary Disease; ATTEND Internal Medicine
PROC: B32T1ZZ Computerized Tomography (CT Scan) of Left Pulmonary Artery using Low Osmolar Contrast (ICD-10-PCS; principal; 2025-03-04)
PROC: B3201ZZ Computerized Tomography (CT Scan) of Thoracic Aorta using Low Osmolar Contrast (ICD-10-PCS; 2025-03-04)
PROC: B32S1ZZ Computerized Tomography (CT Scan) of Right Pulmonary Artery using Low Osmolar Contrast (ICD-10-PCS; 2025-03-04)
PROC: 4A02XM4 Measurement of Cardiac Total Activity, External Approach (ICD-10-PCS; 2025-03-05)
PROC: 3E033HZ Introduction of Radioactive Substance into Peripheral Vein, Percutaneous Approach (ICD-10-PCS; 2025-03-05)
DX: M94.0 Chondrocostal junction syndrome [Tietze] (principal); I50.33 Acute on chronic diastolic (congestive) heart failure; I11.0 Hypertensive heart disease with heart failure; E78.5 Hyperlipidemia, unspecified; N40.0 Benign prostatic hyperplasia without lower urinary tract symptoms; Z79.82 Long term (current) use of aspirin; Z79.899 Other long term (current) drug therapy
CPT/HCPCS: 36415; 71045; 71275; 78452; 80048; 80053; 80061; 82565; 83735; 83880; 84132; 84484; 85025; 85379; 85730; 87081; 93005; 93017; 93306; 96374; 99285; A9500; G0378; J1938; J2270; J2785; Q9967

== ENCOUNTER 2025-05-20 03:54 | Emergency (ER) | payer MEDICARE, MEDICAID ==
[~2025-05-20] VITALS: Ht 175.3 cm; Wt 100.0 kg
[~2025-05-20 03:54] MED LIST changes: +ACET-1008 PO; -ASPI-529 PO; +ATOR20TA66 PO; +LINE600T14 PO; +LOSA50TA64 PO; +PANT40TA54 PO; +THIA100T70 PO
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
[2025-05-20 04:21] LABS: MEAN PLATELET VOLUME 7.3 FL (7.4-10.4); RED CELL DISTRIBUTION WIDTH 14.9 % (11.5-14.5)
--- NOTE | 2025-05-20 04:32 | RADIOLOGY REPORT ---
CHEST RADIOGRAPH Indication: CP Technique: Single frontal view of the chest was obtained COMPARISON: DI CHEST,SINGLE VIEW on DOS: 04/11/25, CT CTA CHEST PE W/ IV CONTRAST on DOS: 03/04/25, DI CHEST,SINGLE VIEW on DOS: 03/04/25, DI CHEST,SINGLE VIEW on DOS: 03/02/25 FINDINGS: Cardiac silhouette is enlarged. No overt pulmonary edema. Mild bibasilar opacity, likely atelectatic. IMPRESSION: Cardiomegaly without overt pulmonary edema. Mild bibasilar opacity, likely atelectatic although difficult to exclude pneumonia on either side.
[2025-05-20 05:07] LABS: CREATININE 0.91 MG/DL (0.60-1.10); PRO BRAIN NATRIURETIC PEPTIDE 551 PG/ML (0-125); TOTAL CARBON DIOXIDE 26.6 MMOL/L (24-32); eCRCL 80 ML/MIN; eGFR 83 ML/MIN
[2025-05-20] MEDS: oxyCODONE IR 5mg (immed. release) tablet PO ONE (05:48)
[2025-05-20] MEDS: ondansetron/PF 4mg/2ml inj IV ONE (05:49)
[2025-05-20] MEDS: ketorolac trometh 15mg/ml vial 15 MG/ML ML IV ONE (05:49)
[2025-05-20 05:50] VITALS: TEMP 98.9
[2025-05-20] MEDS: acetaminophen 1,000mg/100ml IV 100 ML IV ONE (05:50)
--- NOTE | 2025-05-20 07:26 | ELECTROCARDIOGRAPH REPORT ---
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 ADAM Rizo Measurements Intervals [place] Rate: 89 P: 60 DC: 156 QRS: 36 QRSD: 101 T: 49 QT: 401 QTc: 488 Interpretive Statements Sinus rhythm Borderline prolonged QT interval Electronically Signed On 05-22-2025 17:38:[address] ADAM Rizo Please click the below link to view image of tracing.
[2025-05-20 08:01] LABS: URINE AMPHETAMINE SCREEN NEGATIVE (Neg); URINE BARBITUATE SCREEN NEGATIVE (Neg); URINE BENZODIAZEPINES SCREEN NEGATIVE (Neg); URINE CANNABINOID SCREEN NEGATIVE (Neg); URINE COCAINE SCREEN NEGATIVE (Neg); URINE METHADONE SCREEN NEGATIVE (Neg); URINE OPIATE SCREEN NEGATIVE (Neg); URINE PHENCYCLIDINE SCREEN NEGATIVE (Neg)
[2025-05-20 10:49] VITALS: BP 158/99; PULSE 72; RESP 16; O2SAT 93
== END 2025-05-20 10:50 | disposition home or self-care (01) ==
LOC: ER 03:54
DX: R07.89 Other chest pain (principal); R06.02 Shortness of breath
CPT/HCPCS: 36415; 71045; 80048; 80305; 83880; 84145; 84484; 85025; 93005; 96374; 96375; 99285; J0131; J1885; J2405